=== PATIENT | male | born 1945 | race Caucasian/White ===

== ENCOUNTER 2018-12-09 12:45 | Emergency (ER) | payer MEDICARE, OTHER ==
[2018-12-09 13:00] VITALS: BP 155/80
[2018-12-09] MEDS ORDERED: OXYCODONE HCL IR 5 MG TABLET PO ONE (13:14)
[2018-12-09] MEDS ORDERED: LIDOCAINE 5% (700 MG) TRANSDERMAL ADH..PATCH TP ONE (13:21)
--- NOTE | 2018-12-09 13:21 | ER Document Report ---
HPI - HPI Time Seen by Provider: 12/09/18 13:07 Pain Level: 4 Notes: Patient is a 73-year-old male with a history of hyperlipidemia, type 2 diabetes, known left biceps tear who presents complaining of acute left shoulder pain status post injury prior to arrival. Patient states that he was reaching to his left and pulling a trailer that he has handled many times before when he felt immediate pain in his shoulder. Patient states that since then he has not been able to actively move his arm without pain. He has not noticed any swelling or bruising. Denies drug allergies. He does have an orthopedic doctor in [place] and is currently here for the weekend. No history of IV drug abuse. Denies any headache, fever, head injury, neck pain, URI, sore throat, chest pain, palpitations, syncope, cough, shortness of breath, wheeze, dyspnea, abdominal pain, nausea/vomiting/diarrhea, urinary retention, dysuria, hematuria, loss of control of bowel or bladder, numbness/tingling, muscle paralysis, or rash. - ROS Systems Reviewed and Negative: Yes All other systems reviewed and negative - DERM Skin Color: Normal Past Medical History - Social History Smoking Status: Never Smoker Chew tobacco use (# tins/day): No Frequency of alcohol use: None Drug Abuse: None Family History: Reviewed & Not Pertinent Patient has suicidal ideation: No Patient has homicidal ideation: No - Past Medical History Cardiac Medical History: Reports: Hx Hypercholesterolemia Endocrine Medical History: Reports: Hx Diabetes Mellitus Type 2 Renal/ Medical History: Denies: Hx Peritoneal Dialysis Vertical Provider Document - CONSTITUTIONAL Agree With Documented VS: Yes Notes: PHYSICAL EXAMINATION: GENERAL: Well-appearing, well-nourished and in no acute distress. NECK: Normal range of motion, supple without lymphadenopathy. Non-tender. Spurling negative. No rigidity/meningismus. LUNGS: Breath sounds clear to auscultation bilaterally and equal. No wheezes rales or rhonchi. HEART: Regular rate and rhythm without murmurs, rubs, gallops. Musculoskeletal: Lt shoulder: FROM to passive. LROM to active due to pain. Strength 3+/5 due to pain. + impingement test. Neg speed test. No crepitus. + bulge to the distal biceps (known biceps tear, chronic per pt). + tenderness to the anterior shoulder to palp. No erythema or warmth. No deformity or ecchymosis. Unable to thoroughly evaluate the RC due to discomfort with active motion. N/V intact distal. Extremities: No cyanosis, clubbing, or edema b/l. Peripheral pulses 2+. Capillary refill less than 3 seconds. NEUROLOGICAL: Normal speech, normal gait. PSYCH: Normal mood, normal affect. SKIN: Warm, Dry, normal turgor, no rashes or lesions noted. - INFECTION CONTROL TRAVEL OUTSIDE OF THE [place] IN LAST 30 DAYS: No Course - Re-evaluation Re-evalutation: 12/09/18 13:48 Patient is an afebrile, well-hydrated, 73 yo male who presents to the ED with left shoulder pain which I suspect to have internal involvement with a noted biceps tendon tear (chronic/known). Vitals are acceptable without any significant tachycardia, tachypnea, or hypoxia. PE is otherwise unremarkable for any neurovascular compromise, other obvious tendon/ligament rupture, obvious fracture/dislocation, septic joint. X-ray was unremarkable for any acute pathology aside from arthritic changes. sling and pain medicine provided today. Patient is nontoxic-appearing. No other labs or imaging warranted at this time based on H&P. Conservative measures otherwise for symptoms. Recheck with your PCM in 3-5 days. Schedule appointment with orthopedics for further evaluation and management. I do not feel that an emergent MRI is warranted at this time. I did review this with the patient and his . Return to the ED with any worsening/concerning symptoms otherwise as reviewed in discharge. Patient is in agreement. - Vital Signs Vital signs: Temp Pulse Resp BP Pulse Ox 98.5 F 72 20 155/80 H 100 12/09/18 12:59 12/09/18 12:59 12/09/18 12:59 12/09/18 12:59 12/09/18 12:59 Discharge - Discharge Clinical Impression: Left shoulder pain Qualifiers: Chronicity: acute Qualified Code(s): M25.512 - Pain in left shoulder Condition: Stable Disposition: HOME, SELF-CARE Instructions: Exercise Program for the Shoulder ([facility]), Shoulder Injury ([facility]) Additional Instructions: Rest, Ice, Compression, Elevation Use sling as directed Tylenol/ibuprofen as needed Light stretches daily Strength exercises as able Moist heat and massage may help F/u with your PCP in 3-5 days for a recheck Schedule an appointment with orthopedics for further evaluation and management Return to the ED with any worsening symptoms and/or development of fever, headache, chest pain, palpitations, syncope, shortness of breath, trouble breathing, abdominal pain, n/v/d, muscle weakness/paralysis, numbness/tingling, swelling, redness, or other worsening symptoms that are concerning to you. Prescriptions: Tramadol HCl [Ultram 50 mg Tablet] 50 mg PO Q4HP PRN #15 tab PRN Reason: Forms: Elevated Blood Pressure Referrals: RADHA KEE MD [ACTIVE PROVISIONAL STAFF] - Follow up as needed
--- NOTE | 2018-12-09 13:38 | RADIOLOGY REPORT (SQ) ---
EXAM DESCRIPTION: SHOULDER LEFT 2 OR MORE VIEWS COMPLETED DATE/TIME: 12/09/2018 1:28 pm REASON FOR STUDY: Shoulder injury COMPARISON: None. NUMBER OF VIEWS: Three views. TECHNIQUE: Internal rotation, external rotation, and Y view images acquired of the left shoulder. LIMITATIONS: None. FINDINGS: MINERALIZATION: Normal. BONES: No acute fracture. No worrisome bone lesions. JOINTS: No dislocation. Severe acromioclavicular arthrosis. Moderate glenohumeral arthrosis. VISUALIZED LUNGS AND RIBS: No pneumothorax. No rib fracture. SOFT TISSUES: No radiopaque foreign body. OTHER: No other significant finding. IMPRESSION: No fracture or dislocation of the left shoulder. Severe acromioclavicular arthrosis. Mo derate glenohumeral arthrosis. TECHNICAL DOCUMENTATION: JOB ID: [id number] [employer]- All Rights Reserved Reading location - IP/workstation name: [email or web address]
== END 2018-12-09 14:08 | disposition home or self-care (01) ==
LOC: ER 12:45
DX: M25.512 Pain in left shoulder (principal); X50.9XXA Other and unspecified overexertion or strenuous movements or postures, initial encounter; E11.9 Type 2 diabetes mellitus without complications
CPT/HCPCS: 99283; 73030; A9270

== ENCOUNTER 2019-11-06 10:48 | Emergency (ER) | payer MEDICARE, OTHER ==
[2019-11-06] MEDS ORDERED: DIPH/PERTUSS(ACELL)/TETANUS VAC/PF 0.5 ML SYR (>=10YO) IM ONE (10:56)
--- NOTE | 2019-11-06 10:56 | ER Document Report ---
ED Medical Screen (RME) - General Chief Complaint: Laceration Stated Complaint: LACERATION/LEFT THUMB Time Seen by Provider: 11/06/19 10:48 Mode of Arrival: Ambulatory Information source: Patient Notes: 74-year-old male presented to ED for laceration to his left thumb pad. He states he did it with a table saw. It is still bleeding at this point. He is alert oriented respirations regular and unlabored speaking in full sentences walks with even steady gait. I have greeted and performed a rapid initial assessment of this patient. A comprehensive ED assessment and evaluation of the patient, analysis of test results and completion of medical decision making process will be conducted by an additional ED providers. TRAVEL OUTSIDE OF THE [place] IN LAST 30 DAYS: No - Related Data Allergies/Adverse Reactions: No Known Allergies Allergy (Verified 12/09/18 12:47) Past Medical History - Past Medical History Cardiac Medical History: Reports: Hx Hypercholesterolemia Endocrine Medical History: Reports: Hx Diabetes Mellitus Type 2 Renal/ Medical History: Denies: Hx Peritoneal Dialysis
[2019-11-06] MEDS ORDERED: LIDOCAINE 1% INJ-PF (10 MG/ML) 30 ML SDV INJ ONE (11:06)
--- NOTE | 2019-11-06 11:13 | ER Document Report ---
ED Wound - General Chief Complaint: Laceration Stated Complaint: LACERATION/LEFT THUMB Time Seen by Provider: 11/06/19 10:48 Mode of Arrival: Ambulatory Notes: HPI: 74-year-old male who accidentally cut his left thumb using a table saw. Tetanus is not up-to-date. He is on blood thinning medications. He denies pain or injury to any other location. History of diabetes on glipizide. ROS: See HPI Reviewed vital signs and nursing note as charted by RN. PHYSICAL EXAM: CONSTITUTIONAL: Alert and oriented and responds appropriately to questions. Well-appearing; well-nourished EXT: Patient has a fat pad laceration to the left thumb that does not cross the DIP joint. Hemostatic currently. Good capillary refill with sensation intact to the tip. No nail included SKIN: See above NEURO: See above PSYCH: The patient's mood and manner are appropriate. Grooming and personal hygiene are appropriate. TRAVEL OUTSIDE OF THE [place] IN LAST 30 DAYS: No - Related Data Allergies/Adverse Reactions: No Known Allergies Allergy (Verified 11/06/19 10:54) Past Medical History - General Information source: Patient - Social History Smoking Status: Never Smoker Chew tobacco use (# tins/day): No Frequency of alcohol use: None Drug Abuse: None Family History: Reviewed & Not Pertinent Patient has homicidal ideation: No - Past Medical History Cardiac Medical History: Reports: Hx Hypercholesterolemia Endocrine Medical History: Reports: Hx Diabetes Mellitus Type 2 Renal/ Medical History: Denies: Hx Peritoneal Dialysis Physical Exam - Vital signs Vitals: Temp Pulse Resp BP Pulse Ox 98.8 F 98 16 167/116 H 97 11/06/19 10:52 11/06/19 10:52 11/06/19 10:52 11/06/19 10:52 11/06/19 10:52 Course - Re-evaluation Re-evalutation: 11/06/19 11:13 Given the above history and physical examination we will update the patient's tetanus, provide a digital block to the thumb and suture appropriately. X-ray was ordered in triage. 11/06/19 11:32 X-ray of the finger shows no obvious fractures. Tetanus has been updated. - Vital Signs Vital signs: Temp Pulse Resp BP Pulse Ox 98.8 F 98 16 167/116 H 97 11/06/19 10:55 11/06/19 10:52 11/06/19 10:52 11/06/19 10:52 11/06/19 10:52 - Laboratory Laboratory results interpreted by me: 11/06/19 11:23 POC Glucose 160 H Procedures - Laceration/Wound Repair Left Finger Wound length (cm): 3 Wound's Depth, Shape: Superficial Laceration pre-procedure: Chloraprep applied Anesthetic type: Other - I performed a digital block of the left thumb Volume Anesthetic (mLs): 8 Irrigated w/ Saline (mLs): 1,000 Wound Repaired With: Sutures Suture Size/Type: 4:0, Prolene Number of Sutures: 5 Post-procedure wound care: Sterile dressing applied Post-procedure NV exam normal: Yes Complications: No Discharge - Discharge Clinical Impression: Laceration of left thumb Qualifiers: Encounter type: initial encounter Damage to nail status: without damage Foreign body presence: without foreign body Qualified Code(s): S61.012A - Laceration without foreign body of left thumb without damage to nail, initial encounter Condition: Good Disposition: HOME, SELF-CARE Additional Instructions: Come back immediately for any swelling, discharge, redness, or fever. Apply bacitracin or Neosporin ointment to the wound twice daily until healing. Please return in around 10 days for suture removal.
--- NOTE | 2019-11-06 12:00 | RADIOLOGY REPORT (SQ) ---
EXAM DESCRIPTION: FINGER LEFT IMAGES COMPLETED DATE/TIME: 11/06/2019 11:28 am REASON FOR STUDY: left thumb vs table saw COMPARISON: None. EXAM PARAMETERS: NUMBER OF VIEWS: Three views. TECHNIQUE: AP, lateral and oblique radiographic images acquired of the left hand. LIMITATIONS: None. FINDINGS: MINERALIZATION: Normal. BONES: No acute fracture or dislocation. No worrisome bone lesions. JOINTS: No effusion. SOFT TISSUES: Mild 1st digit soft tissue swelling. No radiopaque foreign body. OTHER: No other significant finding. IMPRESSION: NO FRACTURE. TECHNICAL DOCUMENTATION: JOB ID: [id number] [id number] 2010 [employer]- All Rights Reserved Reading location - IP/workstation name: [email or web address]
[2019-11-06] MEDS ORDERED: BACITRACIN ZINC OINTMENT 15 GM TP ONE (12:03)
[2019-11-06 12:33] VITALS: BP 165/110
== END 2019-11-06 12:32 | disposition home or self-care (01) ==
LOC: ER 10:48
PROC: 0HQGXZZ Repair Left Hand Skin, External Approach (ICD-10-PCS; principal; 2019-11-06)
DX: S61.012A Laceration without foreign body of left thumb without damage to nail, initial encounter (principal); W29.8XXA Contact with other powered hand tools and household machinery, initial encounter; Z79.01 Long term (current) use of anticoagulants; E11.9 Type 2 diabetes mellitus without complications
CPT/HCPCS: 99283; 90471; 82962; 73140; 90715; 12002; A9270; J3490

== ENCOUNTER 2020-04-17 15:25 | Emergency (ER) | payer MEDICARE, OTHER ==
[2020-04-17] MEDS ORDERED: HYDROCODONE/ACETAMINOPHEN 5-325 MG TABLET PO ONE (16:15)
--- NOTE | 2020-04-17 16:28 | ER Document Report ---
ED Medical Screen (RME) - General Chief Complaint: Laceration Stated Complaint: LACERATION Time Seen by Provider: 04/17/20 16:13 TRAVEL OUTSIDE OF THE [place] IN LAST 30 DAYS: No - HPI Notes: 04/17/20 16:16 74-year-old male with a history of atrial fibrillation on Eliquis with presents to the emergency room today for evaluation after he lacerated his left thumb from getting into an accident with a metal ladder 2 hours ago. Denies any other area of injury. Tetanus is up-to-date from a previous laceration to his left thumb a year or so ago. Bleeding is controlled when he keeps his thumb elevated. Denies any chest pain shortness of breath. Reports pain is 5 out of 5 to right thumb. I have greeted and performed a rapid initial assessment of this patient. A comprehensive ED assessment and evaluation of the patient, analysis of test results and completion of the medical decision making process will be conducted by additional ED providers. PHYSICAL EXAMINATION: GENERAL: Well-appearing, well-nourished and in no acute distress. HEAD: Atraumatic, normocephalic. EYES: Pupils equal round extraocular movements intact, conjunctiva are normal. NECK: Normal range of motion CV: s1, s2 regular LUNGS: No respiratory distress Musculoskeletal: Normal range of motion NEUROLOGICAL: Normal speech, normal gait. SKIN: Warm, Dry, normal turgor, no rashes or lesions noted. right thumb with a large W laceration to volar aspect. cap refill < 3 seconds 04/17/20 16:16 - Related Data Allergies/Adverse Reactions: No Known Allergies Allergy (Verified 04/17/20 16:10) Past Medical History - Past Medical History Cardiac Medical History: Reports: Hx Hypercholesterolemia Endocrine Medical History: Reports: Hx Diabetes Mellitus Type 2 Renal/ Medical History: Denies: Hx Peritoneal Dialysis Physical Exam - Vital signs Vitals: Temp Pulse Resp BP Pulse Ox 98.2 F 66 18 147/80 H 96 04/17/20 15:40 04/17/20 15:40 04/17/20 15:40 04/17/20 15:40 04/17/20 15:40 Course - Vital Signs Vital signs: Temp Pulse Resp BP Pulse Ox 98.2 F 66 18 147/80 H 96 04/17/20 15:40 04/17/20 15:40 04/17/20 15:40 04/17/20 15:40 04/17/20 15:40
[2020-04-17] MEDS ORDERED: LIDOCAINE 2% INJ (20 MG/ML) 20 ML MDV INJ ONE (16:49)
[2020-04-17] MEDS ORDERED: BUPIVACAINE HCL 0.5 % INJ/PF 30 ML SDV INJ ONE (16:50)
--- NOTE | 2020-04-17 16:56 | RADIOLOGY REPORT (SQ) ---
EXAM DESCRIPTION: FINGER RIGHT IMAGES COMPLETED DATE/TIME: 04/17/2020 4:36 pm REASON FOR STUDY: right thumb laceration COMPARISON: None. NUMBER OF VIEWS: Three views. TECHNIQUE: AP, lateral, and oblique images acquired of the right thumb. LIMITATIONS: None. FINDINGS: MINERALIZATION: Normal. BONES: There is a small avulsion injury of the dorsal base of the thumb distal phalanx. Background o f degenerative changes most significantly affecting the metacarpal phalangeal joints. SOFT TISSUES: Significant soft tissue defect associated with distraction of the above described avuls junaid injury. OTHER: No other significant finding. IMPRESSION: Soft tissue defect with associated distraction of a small avulsion fracture of the dorsa l base of the thumb distal phalanx. COMMENT: SITE OF TRAUMA/COMPLAINT MARKED/STAMP COMPLETED: NO. TECHNICAL DOCUMENTATION: JOB ID: [id number] 2010 [employer]- All Rights Reserved Reading location - IP/workstation name: [email or web address]
--- NOTE | 2020-04-17 17:02 | ER Document Report ---
ED General - General Chief Complaint: Laceration Stated Complaint: LACERATION Time Seen by Provider: 04/17/20 16:13 Mode of Arrival: Ambulatory Information source: Patient TRAVEL OUTSIDE OF THE [place] IN LAST 30 DAYS: No - HPI Patient complains to provider of: Laceration to the dorsal aspect of the right thumb Onset: Just prior to arrival Onset/Duration: Sudden Quality of pain: Stabbing, Throbbing Severity: Severe Pain Level: 5 Context: Presents to the ER for evaluation of laceration to the dorsal aspect of the right thumb that occurred when he is a collapsible ladder on his hand. He denies numbness but does have some weakness with flexion of the right thumb. Injury occurred approximately 30 minutes prior to arrival. Nurses notes were reviewed. Recently seen / treated by doctor: No - Related Data Allergies/Adverse Reactions: No Known Allergies Allergy (Verified 04/17/20 16:10) Home Medications: eliquis Past Medical History - General Information source: Patient - Social History Smoking Status: Never Smoker Chew tobacco use (# tins/day): No Frequency of alcohol use: None Drug Abuse: None Lives with: Family Family History: Reviewed & Not Pertinent Patient has suicidal ideation: No Patient has homicidal ideation: No - Past Medical History Cardiac Medical History: Reports: Hx Atrial Fibrillation, Hx Hypercholesterolemia Pulmonary Medical History: Reports: None EENT Medical History: Reports: None Neurological Medical History: Reports: None Endocrine Medical History: Reports: Hx Diabetes Mellitus Type 2 Renal/ Medical History: Reports: None. Denies: Hx Peritoneal Dialysis Malignancy Medical History: Reports None GI Medical History: Reports: None Musculoskeletal Medical History: Reports None Skin Medical History: Reports None Psychiatric Medical History: Reports: None Traumatic Medical History: Reports: None Infectious Medical History: Reports: None Past Surgical History: Reports: None - Immunizations Immunizations up to date: Yes Hx Diphtheria, Pertussis, Tetanus Vaccination: Yes - Approximately 2 months ago Review of Systems - Review of Systems Notes: CONSTITUTIONAL: No fever, fatigue or weight loss. SKIN: Positive laceration. HENT: No congestion, ear pain, or sore throat. EYES: No recent vision problems or eye pain. ENDOCRINE: No thyroid problems. No polyuria or polydipsia. CARDIOVASCULAR: No chest pain or edema. RESPIRATORY: No cough, shortness of breath, congestion, or wheezing. GASTROINTESTINAL: No abdominal pain, nausea, vomiting, bloody stools or diarrhea. GENITOURINARY: No dysuria. MUSCULOSKELETAL: No joint pain or swelling. LYMPHATIC: No swollen glands. NEUROLOGIC: No seizures. No headache, focal weakness or sensory changes. HEMATOLOGIC: No unusual bruising or bleeding. PSYCHIATRIC: No depression or anxiety. Physical Exam - Vital signs Vitals: Temp Pulse Resp BP Pulse Ox 98.2 F 66 18 147/80 H 96 04/17/20 15:40 04/17/20 15:40 04/17/20 15:40 04/17/20 15:40 04/17/20 15:40 - Notes Notes: CONSTITUTIONAL: Well appearing in no acute distress SKIN: 2 cm laceration of the dorsum of the right thumb. EYES: Extraocular movements are grossly intact, clear conjunctiva HENT: Normocephalic, atraumatic, moist mucus membranes NECK: No obvious swelling, normal range of motion PULMONARY: Normal chest rise and fall, no respiratory distress or stridor CARDIOVASCULAR: Regular rate, distal extremities are warm and well perfused NEUROLOGIC: Normal speech, moves all extremities MUSCULOSKELETAL: There is good sensation distally in the right thumb. There is some weakness with extension to the right thumb. PSYCHIATRIC: Normal mood and affect Course - Vital Signs Vital signs: Temp Pulse Resp BP Pulse Ox 98.2 F 66 18 147/80 H 96 04/17/20 15:40 04/17/20 15:40 04/17/20 15:40 04/17/20 15:40 04/17/20 15:40 Procedures - Immobilization Right Thumb Pre-Proc Neuro Vasc Exam: Normal Immobilizer type: Finger splint (Static) Performed by: PCT Post-Proc Neuro Vasc Exam: Normal Alignment checked and good: Yes - Laceration/Wound Repair Right Dorsal Finger Thumb Time completed: 17:15 Wound length (cm): 2 Wound's Depth, Shape: Irregular Laceration pre-procedure: Sterile PPE [email or web address] applied Anesthetic type: 2% Lidocaine - 2% lidocaine with 0.5% Marcaine plain for digital block. Volume Anesthetic (mLs): 10 Wound explored: Clean Irrigated w/ Saline (mLs): 40 Wound Debrided: Minimal Wound Repaired With: Sutures Suture Size/Type: 4:0, Ethilon Number of Sutures: 6 Layer Closure?: No Post-procedure wound care: Sterile dressing applied, Splint applied Post-procedure NV exam normal: Yes Complications: No Discharge - Discharge Clinical Impression: Open fracture of right thumb Qualifiers: Encounter type: initial encounter Phalanx: proximal Fracture alignment: displaced Qualified Code(s): S62.511B - Displaced fracture of proximal phalanx of right thumb, initial encounter for open fracture Injury of flexor tendon of right hand Qualifiers: Encounter type: initial encounter Qualified Code(s): S66.801A - Unspecified injury of other specified muscles, fascia and tendons at wrist and hand level, right hand, initial encounter Condition: Stable Disposition: HOME, SELF-CARE Instructions: Laceration Care ([facility]), Prophylactic Antibiotic ([facility]) Additional Instructions: It is important that you contact your local orthopedic physician in [place] tomorrow morning. If they are unable to address this injury prior to 7 days, follow-up with the orthopedic surgeon that I have suggested in your discharge instructions. It is suspected that you have a tendon injury in your thumb and this must be addressed within 7 days. Prescriptions: Hydrocodone/Acetaminophen [Thayne 5-325 mg Tablet] 1 tab PO Q6HP PRN 3 Days #12 tablet PRN Reason: For Pain Scale 3-5 Cephalexin Monohydrate [Keflex 500 mg Capsule] 500 mg PO TID 10 Days #30 capsule Referrals: TODD MYERS DO [ACTIVE STAFF] - Follow up tomorrow (Call for appointment) Print Language: Persian
[2020-04-17 18:27] VITALS: BP 141/83
== END 2020-04-17 18:04 | disposition home or self-care (01) ==
LOC: ER 15:25
DX: S62.511B Displaced fracture of proximal phalanx of right thumb, initial encounter for open fracture (principal); S66.801A Unspecified injury of other specified muscles, fascia and tendons at wrist and hand level, right hand, initial encounter; X58.XXXA Exposure to other specified factors, initial encounter; Z79.01 Long term (current) use of anticoagulants; E11.9 Type 2 diabetes mellitus without complications
CPT/HCPCS: 99284; 73140; 12001; J3490 ×2; A9270